=== PATIENT | female | born 1960 | race Caucasian/White ===

== ENCOUNTER 2016-11-03 22:57 | Emergency (ER) | payer SELFPAY ==
[~2016-11-03] VITALS: Ht 165.1 cm; Wt 76.2 kg
[~2016-11-03 22:57] MED LIST: IBUP-1955 PO
[2016-11-03] MEDS ORDERED: TDAP DIPH,PERTUSS,TET VAC/PF 0.5 ML DISP.SYRIN IM ONE ×2 (23:15→23:48)
[2016-11-03] MEDS ORDERED: NEOMY/BACITRA/POLYMYXIN B OINT UD PACKET TP ONE ×2 (23:45→23:56)
--- NOTE | 2016-11-03 23:49 | NUR ---
Patient discharged to home in stable conditon. Written and verbal after care instructions given. Patient verbalizes understanding of instructions.
== END 2016-11-03 23:52 | disposition home or self-care (01) ==
LOC: ER 22:58
DX: S61.211A Laceration without foreign body of left index finger without damage to nail, initial encounter (principal); F10.20 Alcohol dependence, uncomplicated; F17.200 Nicotine dependence, unspecified, uncomplicated; F19.10 Other psychoactive substance abuse, uncomplicated; W26.0XXA Contact with knife, initial encounter; Y93.89 Activity, other specified; Y99.8 Other external cause status; Y92.89 Other specified places as the place of occurrence of the external cause
CPT/HCPCS: 90715; A4217; A4663

== ENCOUNTER 2017-11-12 10:34 | Emergency (ER) | payer SELFPAY ==
[~2017-11-12] VITALS: Ht 165.1 cm; Wt 76.2 kg
--- NOTE | 2017-11-12 10:50 | NUR ---
Dr Beltrán at the bedside for MSE.
[2017-11-12 11:00] VITALS: BP 113/75
--- NOTE | 2017-11-12 11:08 | NUR ---
Patient discharged to home in stable conditon. Written and verbal after care instructions given. Patient verbalizes understanding of instructions.
== END 2017-11-12 11:08 | disposition home or self-care (01) ==
LOC: ER 10:36
DX: L60.0 Ingrowing nail (principal); K21.9 Gastro-esophageal reflux disease without esophagitis; F17.210 Nicotine dependence, cigarettes, uncomplicated; Z79.1 Long term (current) use of non-steroidal anti-inflammatories (NSAID)
CPT/HCPCS: A4663

== ENCOUNTER 2018-03-16 12:06 | Emergency (ER) | payer OTHER ==
[~2018-03-16] VITALS: Ht 167.6 cm; Wt 77.1 kg
[2018-03-16] MEDS ORDERED: NAPROXEN 500 MG TABLET ONE (12:28)
[2018-03-16] MEDS ORDERED: NAPROXEN 500 MG TABLET PO ONE (12:30)
--- NOTE | 2018-03-16 12:30 | NUR ---
Pt is d/c, tolerable pain level 2 out of 10 reported, with improvement. No s/s of respiratory distress noted. All safety needs are met. Education provided
[2018-03-16 12:32] LABS: *BILIRUBIN,URIN NEGATIVE (NEGATIVE); *BLOOD, URINE 2+ (NEGATIVE); *CLARITY,URINE CLOUDY (CLEAR); *COLOR,URINE YELLOW (YELLOW); *KETONES,URINE NEGATIVE (NEGATIVE); *PROTEIN,URINE 2+ (NEGATIVE); *UROBILINOGEN,URINE 0.2 E.U./dl (NORMAL); LEUKOCYTE ESTERASE ,URINE 3+ (NEGATIVE); NITRITE, URINE POSITIVE (NEGATIVE); UGLUCOSE NEGATIVE (NEGATIVE)
[2018-03-16 12:35] LABS: BACTERIA,URINE MANY /HPF (NONE SEEN); SQUAMOUS EPITHELIAL CELL,UR FEW /HPF (NONE SEEN); WBC,URINE 50-80 /HPF (0-3)
--- NOTE | 2018-03-16 12:38 | NUR ---
Pt is laying in bed.Pt is repoting pain in flank area. VS WNL. All sfety needs are met. Will continue to monitor.
[2018-03-16] MEDS ORDERED: CEPHALEXIN MONOHYDRATE 500 MG CAPSULE ONE (12:57)
[2018-03-16] MEDS ORDERED: CEPHALEXIN MONOHYDRATE 500 MG CAPSULE PO ONE (13:00)
[2018-03-16 13:28] VITALS: BP 120/61
== END 2018-03-16 12:30 | disposition home or self-care (01) ==
LOC: ER 12:07
DX: N12 Tubulo-interstitial nephritis, not specified as acute or chronic (principal); K21.9 Gastro-esophageal reflux disease without esophagitis; F17.200 Nicotine dependence, unspecified, uncomplicated
CPT/HCPCS: A4663

== ENCOUNTER 2018-06-29 00:37 | Emergency (ER) | payer BC, OTHER ==
[~2018-06-29] VITALS: Ht 167.6 cm; Wt 74.8 kg
[2018-06-29] MEDS ORDERED: KETOROLAC TROMETHAMINE 30 MG INJ IVP ONE (01:15)
[2018-06-29] MEDS ORDERED: KETOROLAC TROMETHAMINE 30 MG INJ ONE (01:18)
--- NOTE | 2018-06-29 01:21 | NUR ---
Pt. ambulated into ED w/ c/o diffuse generalized 6/10 abdominal/flank pain since yesterday and discomfort while urinating, pt. reports having had bilat. ureteral stent surgery on , surgical dressing clean/dry/intact, abd. is soft/round/non-distended and tender to touch, urine sample collected and sent to lab - cloudy yellow in appearance - no blood visible, denies OMER/F/N/V but reports feeling pain/weakness in bilat. LE and some constipation, reports taking ibuprofren 600mg once in the morning and again tonight before arriving in ED.,
[2018-06-29 01:25] LABS: *BILIRUBIN,URIN NEGATIVE (NEGATIVE); *BLOOD, URINE 3+ (NEGATIVE); *CLARITY,URINE CLOUDY (CLEAR); *COLOR,URINE YELLOW (YELLOW); *KETONES,URINE NEGATIVE (NEGATIVE); *UROBILINOGEN,URINE 0.2 E.U./dl (NORMAL); LEUKOCYTE ESTERASE ,URINE 2+ (NEGATIVE); NITRITE, URINE POSITIVE (NEGATIVE); UGLUCOSE NEGATIVE (NEGATIVE)
[2018-06-29 01:30] LABS: BASOPHILS # (AUTO) 0.1 K/uL (0.0-8.0); BASOPHILS % (AUTO) 0.8 % (0.0-2.0); EOSINOPHILS # (AUTO) 0.2 K/uL (0.0-0.7); EOSINOPHILS % (AUTO) 3.4 % (0.0-7.0); HEMATOCRIT 31.3 % (31.2-41.9); HEMOGLOBIN 11.2 g/dL (10.9-14.3); LYMPHOCYTES # (AUTO) 1.7 K/uL (20.0-40.0); LYMPHOCYTES % (AUTO) 23.6 % (20.5-51.5); MEAN CORPUSCULAR HGB CONC 36 g/dL (32.3-35.6); MEAN CORPUSCULAR VOLUME 80.8 fL (75.5-95.3); MONOCYTES # (AUTO) 0.6 K/uL (2.0-10.0); MONOCYTES % (AUTO) 8.2 % (0.0-11.0); NEUTROPHILS # (AUTO) 4.6 K/uL (1.8-8.9); PLATELET COUNT (AUTO) 268 K/uL (179-408); RED BLOOD CELL COUNT(AUTO) 3.88 MIL/uL (3.63-4.92); WHITE BLOOD COUNT (AUTO) 7.2 K/uL (3.8-11.8)
[2018-06-29 01:31] LABS: BACTERIA,URINE MANY /HPF (NONE SEEN); RBC,URINE TNTC /HPF (0-3); SQUAMOUS EPITHELIAL CELL,UR FEW /HPF (NONE SEEN); WBC,URINE TNTC /HPF (0-3)
[2018-06-29 01:37] LABS: BILIRUBIN,DIRECT 0.1 mg/dL (0.0-0.2); BILIRUBIN,TOTAL 0.2 mg/dL (0.2-1.0); CREATININE 0.8 mg/dL (0.6-1.3); POTASSIUM 3.8 mmol/L (3.5-5.1); TOTAL PROTEIN, SERUM 6.9 g/dL (6.4-8.2)
[2018-06-29] MEDS ORDERED: CEFTRIAXONE 1 G VIAL ONE (01:42)
[2018-06-29] MEDS ORDERED: CEFTRIAXONE 1 G in IV DEXTROSE 5% 50 ML IV ONE (01:45)
--- NOTE | 2018-06-29 02:46 | NUR ---
Patient discharged to home in stable conditon. Written and verbal after care instructions given. Patient verbalizes understanding of instructions. Pt. d/c w/ prescription per MD order, all d/c papers signed, all belongings taken, ambulated off unit w/ steady gait, left in private vehicle, no acute distress, ID band/IV removed,
== END 2018-06-29 02:49 | disposition home or self-care (01) ==
LOC: ER 00:39
DX: N39.0 Urinary tract infection, site not specified (principal); K21.9 Gastro-esophageal reflux disease without esophagitis; Z79.1 Long term (current) use of non-steroidal anti-inflammatories (NSAID)
CPT/HCPCS: 36415; 80048; 80076; 81001; 83690; 85025; 87077; 87086; 87186; 96365; 96375; 99283; J0696; J1885; J7060; A4663